=== PATIENT | male | born 1995 | race Caucasian/White ===

== ENCOUNTER 2016-08-12 05:50 | Emergency (ER) | payer OTHER ==
[~2016-08-12] VITALS: Ht 190.5 cm; Wt 90.8 kg
[2016-08-12 05:56] VITALS: TEMP 36.6; Ht 190.5 cm; Wt 90.8 kg
[2016-08-12] MEDS ORDERED: MONT1TAB3 PO (06:44)
[2016-08-12] MEDS ORDERED: PENI500T2 PO (06:55)
--- NOTE | 2016-08-12 06:56 | EMERGENCY ROOM VISIT NOTE ---
History Report prepared by Doreen: Brittany Bermudez Under the Supervision of: Dr. Chris Logan D.O. First contact with patient: 06:37 Chief Complaint: ILLNESS Stated Complaint: SEVERE EAR PAIN AND SORETHROAT History of Present Illness The patient is a 20 year old male who presents to the Emergency Room with complaints of worsening sore throat starting yesterday. He rates his discomfort as a 9/10 in severity. The pain is present mostly in the left side of the throat , neck, and left ear. The pain is worsened by swallowing and palpation of the neck. He has had mono before. He is a [employer] student. Source of History: patient Onset: yesterday Position: throat Symptom Intensity: 9/10 Quality: other (sore) Timing: worsening Modifying Factors (Worsening): other (swallowing, palpation) Associated Symptoms: + neck pain (left) Note: Pt reports left ear pain. Review of Systems See HPI for pertinent positives & negatives. A total of 10 systems reviewed and were otherwise negative. Past Medical & Surgical Medical Problems: (1) Mononucleosis Family History No pertinent family history stated. Social History Smoking Status: Never Smoker Marital Status: single Occupation Status: [employer] Current/Historical Medications Scheduled Montelukast Sodium (Singulair), 10 MG PO DAILY Allergies Coded Allergies: No Known Allergies (Unverified , 08/12/16) Physical Exam Vital Signs Date Time Temp Pulse Resp B/P Pulse Ox O2 Delivery O2 Flow Rate FiO2 08/12/16 05:56 36.6 93 16 127/81 98 Room Air Physical Exam CONSTITUTIONAL/VITAL SIGNS: Reviewed / noted above. GENERAL: Non-toxic in appearance. INTEGUMENTARY: Warm, dry, and [place]. HEAD: Normocephalic. EYES: without scleral icterus or trauma. ENT/OROPHARYNX: Enlarged tonsils bilaterally with some mild erythema and mild exudate. No asymmetry, no obvious abscess. LYMPHADENOPATHY/NECK: Mildly tender left anterior lymph nodes. RESPIRATORY: Lungs clear and equal. CARDIOVASCULAR: Regular rate and rhythm. GI/ABDOMEN: Soft and nontender. No organomegaly or pulsatile mass. No rebound or guarding. Normal bowel sounds. EXTREMITIES: Warm and well perfused. BACK: No CVA tenderness. NEUROLOGICAL: Intact without focal deficits. PSYCHIATRIC: normal affect. MUSCULOSKELETAL: Normally developed with good muscle tone. Medical Decision & Procedures ED Course 0638: Previous medical records were reviewed. The patient was evaluated in room B2. A complete history and physical examination was performed. 0700: Veetids Tab 500 mg PO, Decadron Inj 10 mg IM. 0715: On reevaluation, the patient is resting comfortably. I discussed the results and findings with the patient. He verbalized agreement of the treatment plan. He was discharged home. Medical Decision Differential includes viral illness, influenza, streptococcal pharyngitis, meningitis, pneumonia, sinusitis, UTI, pyelonephritis, otitis media. This is a 20-year-old male who presents to the ED with a chief complaint of a sore throat. Details listed above. His symptoms are primarily on the left side. Tympanic membranes clear. There is no significant lymphadenopathy although is tenderness to palpation of the left anterior lymph nodes. Throat reveals some erythema and chronically enlarged tonsils. There is also small amount of exudates. Rapid strep test was negative. There is no evidence of abscess. The patient was treated with Decadron IM and penicillin by mouth. [place] test was recommended in 1 week if symptoms don't improve. Impression Primary Impression: Exudative tonsillitis Scribe Attestation The scribe's documentation has been prepared under my direction and personally reviewed by me in its entirety. I confirm that the note above accurately reflects all work, treatment, procedures, and medical decision making performed by me. Departure Information Dispostion Home / Self-Care Prescriptions Penicillin V Potassium (VEETIDS) 500 Mg Tab 1 TAB PO QID for 10 Days, #40 TAB Prov: Chris Logan D.O. 08/12/16 Referrals No Doctor, Assigned (PCP) Patient Instructions ED Tonsillitis, [facility] Additional Instructions Penicillin as prescribed. Take Tylenol or Motrin as needed for pain. Follow-up with your doctor for further care and evaluation in 1-2 days. Return to the emergency department for worsening or new symptoms or any concerns. You have been examined and treated today on an emergency basis only. This is not a substitute for, or an effort to provide, complete comprehensive medical care. It is impossible to recognize and treat all injuries or illnesses in a single emergency department visit. It is therefore important that you follow up closely with your doctor. Call as soon as possible for an appointment.
[2016-08-12 06:59] VITALS: BP 135/86; PULSE 86; O2SAT 96
[2016-08-12] MEDS ORDERED: DEXAMETHASONE SOD INJ 10 MG/ML VIAL IM ONE (07:00)
[2016-08-12] MEDS ORDERED: PENICILLIN V POTASSIUM 250 MG TAB PO ONE (07:00)
== END 2016-08-12 07:00 | disposition home or self-care (01) ==
LOC: C.EDB 05:52
DX: J03.90 Acute tonsillitis, unspecified (principal); Z79.899 Other long term (current) drug therapy